=== PATIENT | female | born 1940 | race Hispanic/Latino ===

== ENCOUNTER → 2023-08-30 | Outpatient (CLI) | payer OTHER | END | disposition home or self-care (01) | LOC: RAD 15:13 | PROVIDERS: ATTEND Legal Medicine | DX: K43.9 Ventral hernia without obstruction or gangrene (principal); J90 Pleural effusion, not elsewhere classified | CPT/HCPCS: 74176 ==

== ENCOUNTER → 2023-09-26 | Outpatient (CLI) | payer OTHER | END | disposition home or self-care (01) | LOC: RAD 09:47 | PROVIDERS: ATTEND Legal Medicine | DX: R91.8 Other nonspecific abnormal finding of lung field (principal); C64.2 Malignant neoplasm of left kidney, except renal pelvis; K80.80 Other cholelithiasis without obstruction; J90 Pleural effusion, not elsewhere classified; I25.10 Atherosclerotic heart disease of native coronary artery without angina pectoris; K86.89 Other specified diseases of pancreas; I70.0 Atherosclerosis of aorta; K42.9 Umbilical hernia without obstruction or gangrene | CPT/HCPCS: 71250; 74176 ==

== ENCOUNTER → 2024-03-22 | Outpatient (CLI) | payer OTHER | END | disposition home or self-care (01) | LOC: RAD 09:17 | PROVIDERS: ATTEND Legal Medicine | DX: C79.00 Secondary malignant neoplasm of unspecified kidney and renal pelvis (principal); C78.6 Secondary malignant neoplasm of retroperitoneum and peritoneum; D36.7 Benign neoplasm of other specified sites; N18.5 Chronic kidney disease, stage 5; K45.8 Other specified abdominal hernia without obstruction or gangrene; I70.0 Atherosclerosis of aorta; E27.8 Other specified disorders of adrenal gland; R91.8 Other nonspecific abnormal finding of lung field | CPT/HCPCS: 71250; 74176 ==